=== PATIENT | male | born 1980 | race Caucasian/White ===

== ENCOUNTER 2019-10-11 11:02 | Inpatient (IN) | payer MEDICAID, SELFPAY ==
[~2019-10-11] VITALS: Ht 167.6 cm; Wt 80.0 kg
[~2019-10-11 11:02] MED LIST: METR500T PO; PERCT PO; SULF-168 PO
[2019-10-11] MEDS ORDERED: ACETAMINOPHEN 500 MG TABLET ONE (11:34)
[2019-10-11] MEDS ORDERED: ACETAMINOPHEN 500 MG TABLET PO ONE ×2 (11:45→19:15)
[2019-10-11 12:58] LABS: APPEARANCE,URINE CLEAR (CLEAR); BILIRUBIN,URINE NEGATIVE (NEGATIVE); GLUCOSE, URINE (UA) NEGATIVE (NEGATIVE); KETONES,URINE TRACE mg/dL (NEGATIVE); LEUKOCYTE ESTERASE ,URINE NEGATIVE (NEGATIVE); NITRATE,URINE NEGATIVE (NEGATIVE); OCCULT BLOOD,URINE NEGATIVE (NEGATIVE); PROTEIN,URINE SEE CONFIRM (NEGATIVE)
[2019-10-11 13:09] LABS: SULFOSALICYLIC ACID,URINE 3+ (Negative)
[2019-10-11 13:10] LABS: BACTERIA,URINE None Seen /HPF (None Seen); RBC,URINE 0-2 /HPF (0-2); WBC,URINE 0-2 /HPF (0-5)
[2019-10-11] MEDS ORDERED: SODIUM CHLORIDE 0.9% 1,000 ML ONE (13:19)
[2019-10-11] MEDS ORDERED: SODIUM CHLORIDE 0.9% 1,000 ML IV ONE (13:30)
[2019-10-11 13:51] LABS: BASOPHILS % (AUTO) 0.3 % (0.0-2.0); EOSINOPHILS % (AUTO) 0.2 % (1.0-6.0); HEMATOCRIT 42.9 % (41-53); HEMOGLOBIN 14.1 g/dL (13.5-17.5); LYMPHOCYTES # (AUTO) 1.3 K/uL (1.0-4.8); MEAN CORPUSCULAR HEMOGLOBIN 32.4 pg (26.0-34.0); MEAN CORPUSCULAR VOLUME 98 fL (80-100); MONOCYTES # (AUTO) 0.5 K/uL (0.1-1.0); MONOCYTES % (AUTO) 6.4 % (2.0-9.0); NEUTROPHILS # (AUTO) 5.4 K/uL (1.8-7.7); NEUTROPHILS % (AUTO) 75.1 % (40.0-70.0); PLATELET COUNT (AUTO) 122 K/uL (150-450); RED BLOOD CELL COUNT(AUTO) 4.36 MIL/uL (4.50-5.90); RED CELL DISTRIBUTION WIDTH 12.7 % (11.5-14.5)
[2019-10-11 13:59] LABS: ANION GAP 11 mmol/L (8-16); CALCIUM, TOTAL 8.3 mg/dL (8.8-10.5); CARBON DIOXIDE 24 mmol/L (22-29); CHLORIDE 105 mmol/L (98-107); CREATININE 0.84 mg/dL (0.60-1.30); GLOMERULAR FILTR. RATE CALC > 60 mL/min (>60); GLUCOSE,RANDOM 96 mg/dL (70-110); POTASSIUM 3.5 mmol/L (3.5-5.1); SODIUM SERUM 140 mmol/L (136-145); UREA NITROGEN, BLOOD 10 mg/dL (7-18)
[2019-10-11 14:04] LABS: ALANINE AMINOTRANSFERASE 97 U/L (12-78); ALBUMIN 3.1 g/dL (3.4-5.0); ALKALINE PHOSPHATASE 82 U/L (46-116); ASPARTATE AMINOTRANSFERASE 99 U/L (15-37); BILIRUBIN,TOTAL 0.5 mg/dL (0.1-1.0); C-REACTIVE PROTEIN QUANT 7.25 mg/dL (0.00-0.30); TOTAL PROTEIN, SERUM 7.1 g/dL (6.4-8.2)
[2019-10-11 14:22] LABS: B-TYPE NATRIURETIC PEPTIDE 26 pg/mL (0-100)
[2019-10-11] MEDS ORDERED: CefTRIAXone 1 GM/DEXTROSE 50 ML IV ONE (17:15)
[2019-10-11] MEDS ORDERED: AZITHROMYCIN 500 MG/NS 250 ML IV ONE (17:15)
[2019-10-11 17:18] LABS: FERRITIN 2592 ng/mL (26-388)
[2019-10-11] MEDS ORDERED: GuaiFENesin/CODEINE [SUGAR FREE] 200-20MG/10 ML SYRUP UDCUP PO ONE (18:00)
[2019-10-11] MEDS ORDERED: IBUPROFEN 600 MG TABLET PO ONE (19:15)
[2019-10-11] MEDS ORDERED: MAGNESIUM HYDROXIDE SUSPENSION 30 ML UDCUP PO PRN (20:45)
[2019-10-11] MEDS ORDERED: ZOLPIDEM TARTRATE 5 MG TABLET PO PRN (20:45)
[2019-10-11] MEDS ORDERED: BISACODYL 10 MG RECTAL RECTAL SUPPOSITORY PR PRN (20:45)
[2019-10-11] MEDS ORDERED: MORPHINE SULFATE 2 MG/ML SYRINGE IVP PRN (20:45)
[2019-10-11] MEDS: DOCUSATE SODIUM 100 MG CAPSULE PO SCH (21:00)
[2019-10-11 21:06] VITALS: BP 136/64
[2019-10-12] MEDS ORDERED: SODIUM CHLORIDE 0.9% 0 ML IV ONE (00:16)
[2019-10-12 05:38] VITALS: BP 134/66
[2019-10-12 07:48] LABS: BASOPHILS % (AUTO) 0.1 % (0.0-2.0); EOSINOPHILS % (AUTO) 0.1 % (1.0-6.0); HEMATOCRIT 39.7 % (41-53); HEMOGLOBIN 13.7 g/dL (13.5-17.5); LYMPHOCYTES # (AUTO) 0.9 K/uL (1.0-4.8); LYMPHOCYTES % (AUTO) 11.8 % (22.0-44.0); MEAN CORPUSCULAR HEMOGLOBIN 33.9 pg (26.0-34.0); MEAN CORPUSCULAR HGB CONC 34.5 G/dL (31.0-37.0); MEAN CORPUSCULAR VOLUME 98 fL (80-100); MONOCYTES # (AUTO) 0.4 K/uL (0.1-1.0); MONOCYTES % (AUTO) 5.1 % (2.0-9.0); NEUTROPHILS # (AUTO) 6.5 K/uL (1.8-7.7); NEUTROPHILS % (AUTO) 82.9 % (40.0-70.0); PLATELET COUNT (AUTO) 130 K/uL (150-450); RED BLOOD CELL COUNT(AUTO) 4.04 MIL/uL (4.50-5.90); RED CELL DISTRIBUTION WIDTH 13.2 % (11.5-14.5)
[2019-10-12 08:10] LABS: ALANINE AMINOTRANSFERASE 82 U/L (12-78); ALBUMIN 2.7 g/dL (3.4-5.0); ALKALINE PHOSPHATASE 82 U/L (46-116); ANION GAP 10 mmol/L (8-16); ASPARTATE AMINOTRANSFERASE 94 U/L (15-37); BILIRUBIN,TOTAL 0.6 mg/dL (0.1-1.0); CALCIUM, TOTAL 7.7 mg/dL (8.8-10.5); CARBON DIOXIDE 24 mmol/L (22-29); CHLORIDE 106 mmol/L (98-107); CREATININE 0.71 mg/dL (0.60-1.30); GLOMERULAR FILTR. RATE CALC > 60 mL/min (>60); GLUCOSE,RANDOM 99 mg/dL (70-110); POTASSIUM 3.6 mmol/L (3.5-5.1); SODIUM SERUM 140 mmol/L (136-145); TOTAL PROTEIN, SERUM 6.7 g/dL (6.4-8.2); UREA NITROGEN, BLOOD 7 mg/dL (7-18)
[2019-10-12] MEDS: HEPARIN SODIUM,PORCINE 5,000 UNITS/ML VIAL SQ SCH ×4 (08:35→23:49)
[2019-10-12] MEDS: DOCUSATE SODIUM 100 MG CAPSULE PO SCH ×2 (08:35→20:50)
[2019-10-12 08:52] VITALS: BP 114/70
[2019-10-12] MEDS: ACETAMINOPHEN 325 MG TABLET PO PRN ×2 (08:56→16:01)
[2019-10-12 12:23] VITALS: BP 112/69
[2019-10-12] MEDS: GuaiFENesin/D-METHORPHAN [SUGAR-FREE] 200-20MG/10 ML SYRUP UDCUP PO PRN ×2 (16:19→22:25)
[2019-10-12 16:34] VITALS: BP 137/73
[2019-10-12] MEDS: AZITHROMYCIN 500 MG/NS 250 ML IV SCH (18:11)
[2019-10-12 19:55] VITALS: BP 110/72
[2019-10-12] MEDS: CefTRIAXone 1 GM/DEXTROSE 50 ML IV SCH (20:50)
[2019-10-12] MEDS: HYDROCODONE/ACETAMINOPHEN 5-325 MG TABLET PO PRN (22:30)
[2019-10-13 00:20] VITALS: BP 104/66
[2019-10-13] MEDS: GuaiFENesin/D-METHORPHAN [SUGAR-FREE] 200-20MG/10 ML SYRUP UDCUP PO PRN ×3 (04:43→22:04)
[2019-10-13 05:10] VITALS: BP 114/60
[2019-10-13 07:57] VITALS: BP 111/71
[2019-10-13] MEDS: DOCUSATE SODIUM 100 MG CAPSULE PO SCH ×2 (08:44→20:55)
[2019-10-13] MEDS: HEPARIN SODIUM,PORCINE 5,000 UNITS/ML VIAL SQ SCH ×2 (08:49→16:00)
[2019-10-13 12:19] VITALS: BP 113/70
[2019-10-13] MEDS: ACETAMINOPHEN 325 MG TABLET PO PRN (13:06)
[2019-10-13 16:55] VITALS: BP 130/78
[2019-10-13] MEDS: AZITHROMYCIN 500 MG/NS 250 ML IV SCH (17:33)
[2019-10-13] MEDS: HYDROCODONE/ACETAMINOPHEN 5-325 MG TABLET PO PRN (17:46)
[2019-10-13 20:41] VITALS: BP 112/74
[2019-10-13] MEDS: FAMOTIDINE 20 MG TABLET PO SCH (20:55)
[2019-10-13] MEDS: CefTRIAXone 1 GM/DEXTROSE 50 ML IV SCH (20:55)
[2019-10-14] MEDS: HEPARIN SODIUM,PORCINE 5,000 UNITS/ML VIAL SQ SCH ×4 (00:09→23:50)
[2019-10-14] MEDS: ZINC SULFATE 220 MG CAPSULE PO SCH ×3 (00:09→22:49)
[2019-10-14] MEDS: HYDROXYCHLOROQUINE SULFATE 200 MG TABLET PO SCH ×3 (00:09→20:22)
[2019-10-14] MEDS: HYDROCODONE/ACETAMINOPHEN 5-325 MG TABLET PO PRN ×2 (00:17→17:23)
[2019-10-14 01:29] LABS: INFLUENZA TYPE A NEGATIVE FOR TYPE A (NEGATIVE); INFLUENZA TYPE B NEGATIVE FOR TYPE B (NEGATIVE)
[2019-10-14 04:41] VITALS: BP 104/62
[2019-10-14 07:24] LABS: BASOPHILS % (AUTO) 0.3 % (0.0-2.0); HEMATOCRIT 41.5 % (41-53); HEMOGLOBIN 13.6 g/dL (13.5-17.5); LYMPHOCYTES # (AUTO) 1.3 K/uL (1.0-4.8); LYMPHOCYTES % (AUTO) 18.7 % (22.0-44.0); MEAN CORPUSCULAR HEMOGLOBIN 32.7 pg (26.0-34.0); MEAN CORPUSCULAR HGB CONC 32.8 G/dL (31.0-37.0); MEAN CORPUSCULAR VOLUME 100 fL (80-100); MONOCYTES # (AUTO) 0.7 K/uL (0.1-1.0); MONOCYTES % (AUTO) 10.2 % (2.0-9.0); NEUTROPHILS % (AUTO) 69.8 % (40.0-70.0); PLATELET COUNT (AUTO) 226 K/uL (150-450); RED BLOOD CELL COUNT(AUTO) 4.17 MIL/uL (4.50-5.90); RED CELL DISTRIBUTION WIDTH 13.1 % (11.5-14.5)
[2019-10-14 08:06] VITALS: BP 109/65
[2019-10-14 08:24] LABS: ALANINE AMINOTRANSFERASE 71 U/L (12-78); ALBUMIN 2.5 g/dL (3.4-5.0); ALKALINE PHOSPHATASE 88 U/L (46-116); ANION GAP 10 mmol/L (8-16); ASPARTATE AMINOTRANSFERASE 67 U/L (15-37); BILIRUBIN,TOTAL 0.6 mg/dL (0.1-1.0); C-REACTIVE PROTEIN QUANT 7.28 mg/dL (0.00-0.30); CALCIUM, TOTAL 8.3 mg/dL (8.8-10.5); CARBON DIOXIDE 23 mmol/L (22-29); CHLORIDE 106 mmol/L (98-107); CREATININE 0.67 mg/dL (0.60-1.30); FERRITIN 2037 ng/mL (26-388); GLOMERULAR FILTR. RATE CALC > 60 mL/min (>60); GLUCOSE,RANDOM 95 mg/dL (70-110); LACTATE DEHYDROGENASE 281 U/L (85-227); POTASSIUM 3.8 mmol/L (3.5-5.1); SODIUM SERUM 139 mmol/L (136-145); TOTAL PROTEIN, SERUM 7.1 g/dL (6.4-8.2); UREA NITROGEN, BLOOD 12 mg/dL (7-18)
[2019-10-14] MEDS: DOCUSATE SODIUM 100 MG CAPSULE PO SCH ×2 (09:00→20:22)
[2019-10-14] MEDS: FAMOTIDINE 20 MG TABLET PO SCH ×2 (09:53→20:22)
[2019-10-14] MEDS: GuaiFENesin/D-METHORPHAN [SUGAR-FREE] 200-20MG/10 ML SYRUP UDCUP PO PRN ×3 (09:55→23:50)
[2019-10-14] MEDS: ACETAMINOPHEN 325 MG TABLET PO PRN (13:52)
[2019-10-14 16:32] VITALS: BP 110/56
[2019-10-14] MEDS: AZITHROMYCIN 500 MG/NS 250 ML IV SCH (17:16)
[2019-10-14 20:00] VITALS: BP 105/62
[2019-10-14] MEDS: CefTRIAXone 1 GM/DEXTROSE 50 ML IV SCH (20:22)
[2019-10-14 20:28] VITALS: BP 116/68
[2019-10-15 04:15] VITALS: BP 112/72
[2019-10-15 07:00] LABS: BASOPHILS % (AUTO) 0.3 % (0.0-2.0); EOSINOPHILS % (AUTO) 1.9 % (1.0-6.0); HEMATOCRIT 42.4 % (41-53); HEMOGLOBIN 14.4 g/dL (13.5-17.5); LYMPHOCYTES # (AUTO) 1.4 K/uL (1.0-4.8); LYMPHOCYTES % (AUTO) 17.3 % (22.0-44.0); MEAN CORPUSCULAR HEMOGLOBIN 33.4 pg (26.0-34.0); MEAN CORPUSCULAR VOLUME 98 fL (80-100); MONOCYTES % (AUTO) 11.9 % (2.0-9.0); NEUTROPHILS # (AUTO) 5.7 K/uL (1.8-7.7); NEUTROPHILS % (AUTO) 68.6 % (40.0-70.0); PLATELET COUNT (AUTO) 266 K/uL (150-450); RED BLOOD CELL COUNT(AUTO) 4.31 MIL/uL (4.50-5.90); RED CELL DISTRIBUTION WIDTH 12.8 % (11.5-14.5)
[2019-10-15 07:18] VITALS: BP 119/71
[2019-10-15 08:06] LABS: ALANINE AMINOTRANSFERASE 84 U/L (12-78); ALBUMIN 2.5 g/dL (3.4-5.0); ALKALINE PHOSPHATASE 115 U/L (46-116); ANION GAP 10 mmol/L (8-16); ASPARTATE AMINOTRANSFERASE 90 U/L (15-37); BILIRUBIN,TOTAL 0.6 mg/dL (0.1-1.0); C-REACTIVE PROTEIN QUANT 3.73 mg/dL (0.00-0.30); CALCIUM, TOTAL 8.4 mg/dL (8.8-10.5); CARBON DIOXIDE 24 mmol/L (22-29); CHLORIDE 106 mmol/L (98-107); CREATININE 0.77 mg/dL (0.60-1.30); FERRITIN 2382 ng/mL (26-388); GLOMERULAR FILTR. RATE CALC > 60 mL/min (>60); GLUCOSE,RANDOM 88 mg/dL (70-110); LACTATE DEHYDROGENASE 311 U/L (85-227); SODIUM SERUM 140 mmol/L (136-145); TOTAL PROTEIN, SERUM 7.2 g/dL (6.4-8.2); UREA NITROGEN, BLOOD 11 mg/dL (7-18)
[2019-10-15] MEDS: DOCUSATE SODIUM 100 MG CAPSULE PO SCH ×2 (08:37→21:12)
[2019-10-15] MEDS: HYDROXYCHLOROQUINE SULFATE 200 MG TABLET PO SCH ×2 (08:37→21:12)
[2019-10-15] MEDS: HEPARIN SODIUM,PORCINE 5,000 UNITS/ML VIAL SQ SCH ×2 (08:37→17:24)
[2019-10-15] MEDS: ZINC SULFATE 220 MG CAPSULE PO SCH ×2 (08:37→21:12)
[2019-10-15] MEDS: FAMOTIDINE 20 MG TABLET PO SCH ×2 (08:38→21:12)
[2019-10-15] MEDS: HYDROCODONE/ACETAMINOPHEN 5-325 MG TABLET PO PRN ×3 (09:04→22:01)
[2019-10-15] MEDS: GuaiFENesin/D-METHORPHAN [SUGAR-FREE] 200-20MG/10 ML SYRUP UDCUP PO PRN ×3 (09:04→22:06)
[2019-10-15 13:22] VITALS: BP 108/59
[2019-10-15 15:46] VITALS: BP 118/67
[2019-10-15] MEDS ORDERED: SODIUM CHLORIDE 0.9% 250 ML IV ONE (17:14)
[2019-10-15] MEDS: AZITHROMYCIN 500 MG/NS 250 ML IV SCH (17:24)
[2019-10-15 20:15] VITALS: BP 106/65
[2019-10-15] MEDS: CefTRIAXone 1 GM/DEXTROSE 50 ML IV SCH (21:13)
[2019-10-16] MEDS: HEPARIN SODIUM,PORCINE 5,000 UNITS/ML VIAL SQ SCH ×3 (00:06→15:15)
[2019-10-16 00:44] VITALS: BP 100/64
[2019-10-16 04:22] VITALS: BP 103/66
[2019-10-16 07:14] LABS: BASOPHILS % (AUTO) 0.4 % (0.0-2.0); EOSINOPHILS % (AUTO) 3.6 % (1.0-6.0); HEMATOCRIT 41.9 % (41-53); HEMOGLOBIN 14.3 g/dL (13.5-17.5); LYMPHOCYTES # (AUTO) 1.6 K/uL (1.0-4.8); MEAN CORPUSCULAR HEMOGLOBIN 33.6 pg (26.0-34.0); MEAN CORPUSCULAR HGB CONC 34.1 G/dL (31.0-37.0); MEAN CORPUSCULAR VOLUME 98 fL (80-100); MONOCYTES # (AUTO) 0.9 K/uL (0.1-1.0); MONOCYTES % (AUTO) 11.8 % (2.0-9.0); NEUTROPHILS # (AUTO) 4.9 K/uL (1.8-7.7); NEUTROPHILS % (AUTO) 63.2 % (40.0-70.0); PLATELET COUNT (AUTO) 289 K/uL (150-450); RED BLOOD CELL COUNT(AUTO) 4.26 MIL/uL (4.50-5.90); RED CELL DISTRIBUTION WIDTH 12.7 % (11.5-14.5)
[2019-10-16 07:31] VITALS: BP 111/67
[2019-10-16 08:18] LABS: ALANINE AMINOTRANSFERASE 92 U/L (12-78); ALBUMIN 2.6 g/dL (3.4-5.0); ALKALINE PHOSPHATASE 121 U/L (46-116); ANION GAP 11 mmol/L (8-16); ASPARTATE AMINOTRANSFERASE 89 U/L (15-37); BILIRUBIN,TOTAL 0.6 mg/dL (0.1-1.0); C-REACTIVE PROTEIN QUANT 3.04 mg/dL (0.00-0.30); CALCIUM, TOTAL 8.8 mg/dL (8.8-10.5); CARBON DIOXIDE 23 mmol/L (22-29); CHLORIDE 106 mmol/L (98-107); CREATININE 0.82 mg/dL (0.60-1.30); FERRITIN 2406 ng/mL (26-388); GLOMERULAR FILTR. RATE CALC > 60 mL/min (>60); GLUCOSE,RANDOM 93 mg/dL (70-110); LACTATE DEHYDROGENASE 263 U/L (85-227); POTASSIUM 3.9 mmol/L (3.5-5.1); SODIUM SERUM 140 mmol/L (136-145); TOTAL PROTEIN, SERUM 7.6 g/dL (6.4-8.2); UREA NITROGEN, BLOOD 11 mg/dL (7-18)
[2019-10-16] MEDS: ZINC SULFATE 220 MG CAPSULE PO SCH ×2 (08:18→20:37)
[2019-10-16] MEDS: DOCUSATE SODIUM 100 MG CAPSULE PO SCH ×2 (08:18→20:36)
[2019-10-16] MEDS: FAMOTIDINE 20 MG TABLET PO SCH ×2 (08:18→20:36)
[2019-10-16] MEDS: GuaiFENesin/D-METHORPHAN [SUGAR-FREE] 200-20MG/10 ML SYRUP UDCUP PO PRN ×2 (08:25→20:37)
[2019-10-16] MEDS: ACETAMINOPHEN 325 MG TABLET PO PRN ×2 (08:27→15:15)
[2019-10-16 11:44] VITALS: BP 100/57
[2019-10-16 17:13] VITALS: BP 105/65
[2019-10-16] MEDS: AZITHROMYCIN 500 MG/NS 250 ML IV SCH (17:37)
[2019-10-16 21:04] VITALS: BP 103/64
[2019-10-17] VITALS (11 sets, daily range): BP systolic 96–147; BP diastolic 56–70
[2019-10-17] MEDS: HEPARIN SODIUM,PORCINE 5,000 UNITS/ML VIAL SQ SCH ×4 (00:22→23:27)
[2019-10-17 05:58] LABS: BASOPHILS % (AUTO) 0.6 % (0.0-2.0); EOSINOPHILS % (AUTO) 4.2 % (1.0-6.0); HEMATOCRIT 42.8 % (41-53); HEMOGLOBIN 14.6 g/dL (13.5-17.5); LYMPHOCYTES # (AUTO) 1.7 K/uL (1.0-4.8); LYMPHOCYTES % (AUTO) 19.9 % (22.0-44.0); MEAN CORPUSCULAR HEMOGLOBIN 33.2 pg (26.0-34.0); MEAN CORPUSCULAR VOLUME 98 fL (80-100); MONOCYTES # (AUTO) 0.9 K/uL (0.1-1.0); MONOCYTES % (AUTO) 10.8 % (2.0-9.0); NEUTROPHILS # (AUTO) 5.4 K/uL (1.8-7.7); NEUTROPHILS % (AUTO) 64.5 % (40.0-70.0); PLATELET COUNT (AUTO) 326 K/uL (150-450); RED BLOOD CELL COUNT(AUTO) 4.39 MIL/uL (4.50-5.90); RED CELL DISTRIBUTION WIDTH 12.8 % (11.5-14.5)
[2019-10-17 06:48] LABS: ALANINE AMINOTRANSFERASE 102 U/L (12-78); ALBUMIN 2.7 g/dL (3.4-5.0); ALKALINE PHOSPHATASE 127 U/L (46-116); ANION GAP 13 mmol/L (8-16); ASPARTATE AMINOTRANSFERASE 93 U/L (15-37); BILIRUBIN,TOTAL 0.6 mg/dL (0.1-1.0); C-REACTIVE PROTEIN QUANT 2.31 mg/dL (0.00-0.30); CALCIUM, TOTAL 8.8 mg/dL (8.8-10.5); CARBON DIOXIDE 21 mmol/L (22-29); CHLORIDE 106 mmol/L (98-107); CREATININE 0.89 mg/dL (0.60-1.30); FERRITIN 2512 ng/mL (26-388); GLOMERULAR FILTR. RATE CALC > 60 mL/min (>60); GLUCOSE,RANDOM 99 mg/dL (70-110); LACTATE DEHYDROGENASE 262 U/L (85-227); SODIUM SERUM 140 mmol/L (136-145); TOTAL PROTEIN, SERUM 7.7 g/dL (6.4-8.2); UREA NITROGEN, BLOOD 13 mg/dL (7-18)
[2019-10-17] MEDS: FAMOTIDINE 20 MG TABLET PO SCH ×2 (08:15→20:29)
[2019-10-17] MEDS: HYDROXYCHLOROQUINE SULFATE 200 MG TABLET PO SCH (08:15)
[2019-10-17] MEDS: ZINC SULFATE 220 MG CAPSULE PO SCH (08:15)
[2019-10-17] MEDS: DOCUSATE SODIUM 100 MG CAPSULE PO SCH ×2 (08:15→20:29)
[2019-10-17] MEDS ORDERED: SODIUM CHLORIDE 0.9% 250 ML IV ONE (13:57)
[2019-10-17] MEDS: AZITHROMYCIN 500 MG/NS 250 ML IV SCH (17:21)
[2019-10-17] MEDS: ACETAMINOPHEN 325 MG TABLET PO PRN (17:21)
[2019-10-17] MEDS: HYDROCODONE/ACETAMINOPHEN 5-325 MG TABLET PO PRN (20:29)
[2019-10-18 04:30] VITALS: BP 110/59
[2019-10-18 07:03] VITALS: BP 98/62
[2019-10-18 07:42] LABS: BASOPHILS % (AUTO) 0.5 % (0.0-2.0); EOSINOPHILS % (AUTO) 6.6 % (1.0-6.0); HEMATOCRIT 41.9 % (41-53); LYMPHOCYTES # (AUTO) 2.3 K/uL (1.0-4.8); MEAN CORPUSCULAR HEMOGLOBIN 32.9 pg (26.0-34.0); MEAN CORPUSCULAR HGB CONC 33.4 G/dL (31.0-37.0); MEAN CORPUSCULAR VOLUME 98 fL (80-100); MONOCYTES # (AUTO) 0.8 K/uL (0.1-1.0); MONOCYTES % (AUTO) 10.5 % (2.0-9.0); NEUTROPHILS % (AUTO) 52.4 % (40.0-70.0); PLATELET COUNT (AUTO) 344 K/uL (150-450); RED BLOOD CELL COUNT(AUTO) 4.25 MIL/uL (4.50-5.90); RED CELL DISTRIBUTION WIDTH 12.6 % (11.5-14.5)
[2019-10-18] MEDS: FAMOTIDINE 20 MG TABLET PO SCH ×2 (08:18→20:33)
[2019-10-18] MEDS: HEPARIN SODIUM,PORCINE 5,000 UNITS/ML VIAL SQ SCH ×3 (08:18→23:09)
[2019-10-18] MEDS: ACETAMINOPHEN 325 MG TABLET PO PRN (08:19)
[2019-10-18] MEDS: DOCUSATE SODIUM 100 MG CAPSULE PO SCH ×2 (08:21→20:33)
[2019-10-18 08:50] LABS: ALANINE AMINOTRANSFERASE 127 U/L (12-78); ALBUMIN 2.7 g/dL (3.4-5.0); ALKALINE PHOSPHATASE 119 U/L (46-116); ANION GAP 10 mmol/L (8-16); ASPARTATE AMINOTRANSFERASE 148 U/L (15-37); BILIRUBIN,TOTAL 0.6 mg/dL (0.1-1.0); CALCIUM, TOTAL 8.7 mg/dL (8.8-10.5); CARBON DIOXIDE 25 mmol/L (22-29); CHLORIDE 105 mmol/L (98-107); FERRITIN 2848 ng/mL (26-388); GLOMERULAR FILTR. RATE CALC > 60 mL/min (>60); GLUCOSE,RANDOM 83 mg/dL (70-110); LACTATE DEHYDROGENASE 237 U/L (85-227); POTASSIUM 4.1 mmol/L (3.5-5.1); SODIUM SERUM 140 mmol/L (136-145); TOTAL PROTEIN, SERUM 7.6 g/dL (6.4-8.2); UREA NITROGEN, BLOOD 14 mg/dL (7-18)
[2019-10-18 11:01] VITALS: BP 108/66
[2019-10-18 15:13] VITALS: BP 100/59
[2019-10-18 19:36] VITALS: BP 97/61
[2019-10-19] MEDS: HYDROCODONE/ACETAMINOPHEN 5-325 MG TABLET PO PRN (02:52)
[2019-10-19 05:35] VITALS: BP 90/56
[2019-10-19 07:11] VITALS: BP 94/61
[2019-10-19] MEDS: FAMOTIDINE 20 MG TABLET PO SCH ×2 (07:49→19:47)
[2019-10-19] MEDS: HEPARIN SODIUM,PORCINE 5,000 UNITS/ML VIAL SQ SCH ×2 (07:51→15:25)
[2019-10-19] MEDS: DOCUSATE SODIUM 100 MG CAPSULE PO SCH ×2 (07:53→19:47)
[2019-10-19 08:00] LABS: BASOPHILS % (AUTO) 0.6 % (0.0-2.0); EOSINOPHILS % (AUTO) 5.1 % (1.0-6.0); HEMATOCRIT 41.7 % (41-53); HEMOGLOBIN 13.9 g/dL (13.5-17.5); LYMPHOCYTES # (AUTO) 2.1 K/uL (1.0-4.8); LYMPHOCYTES % (AUTO) 29.9 % (22.0-44.0); MEAN CORPUSCULAR HEMOGLOBIN 32.9 pg (26.0-34.0); MEAN CORPUSCULAR HGB CONC 33.4 G/dL (31.0-37.0); MEAN CORPUSCULAR VOLUME 98 fL (80-100); MONOCYTES # (AUTO) 0.8 K/uL (0.1-1.0); MONOCYTES % (AUTO) 10.9 % (2.0-9.0); NEUTROPHILS # (AUTO) 3.8 K/uL (1.8-7.7); NEUTROPHILS % (AUTO) 53.5 % (40.0-70.0); PLATELET COUNT (AUTO) 366 K/uL (150-450); RED BLOOD CELL COUNT(AUTO) 4.24 MIL/uL (4.50-5.90); RED CELL DISTRIBUTION WIDTH 13.1 % (11.5-14.5)
[2019-10-19 08:45] LABS: ALANINE AMINOTRANSFERASE 148 U/L (12-78); ALBUMIN 2.9 g/dL (3.4-5.0); ALKALINE PHOSPHATASE 117 U/L (46-116); ANION GAP 10 mmol/L (8-16); ASPARTATE AMINOTRANSFERASE 143 U/L (15-37); BILIRUBIN,TOTAL 0.5 mg/dL (0.1-1.0); CALCIUM, TOTAL 8.7 mg/dL (8.8-10.5); CARBON DIOXIDE 24 mmol/L (22-29); CHLORIDE 105 mmol/L (98-107); CREATININE 0.95 mg/dL (0.60-1.30); GLOMERULAR FILTR. RATE CALC > 60 mL/min (>60); GLUCOSE,RANDOM 82 mg/dL (70-110); POTASSIUM 4.3 mmol/L (3.5-5.1); SODIUM SERUM 139 mmol/L (136-145); TOTAL PROTEIN, SERUM 7.5 g/dL (6.4-8.2); UREA NITROGEN, BLOOD 16 mg/dL (7-18)
[2019-10-19 11:56] VITALS: BP 99/59
[2019-10-19 15:47] VITALS: BP 102/63
[2019-10-19 19:13] VITALS: BP 101/62
[2019-10-20] MEDS: HEPARIN SODIUM,PORCINE 5,000 UNITS/ML VIAL SQ SCH ×4 (01:22→23:10)
[2019-10-20 05:06] VITALS: BP 98/57
[2019-10-20 07:07] VITALS: BP 101/65
[2019-10-20] MEDS: FAMOTIDINE 20 MG TABLET PO SCH ×2 (07:59→20:42)
[2019-10-20] MEDS: DOCUSATE SODIUM 100 MG CAPSULE PO SCH ×2 (07:59→20:42)
[2019-10-20 08:03] LABS: BASOPHILS % (AUTO) 0.6 % (0.0-2.0); EOSINOPHILS % (AUTO) 4.2 % (1.0-6.0); HEMATOCRIT 42.8 % (41-53); HEMOGLOBIN 14.5 g/dL (13.5-17.5); LYMPHOCYTES # (AUTO) 1.9 K/uL (1.0-4.8); LYMPHOCYTES % (AUTO) 31.5 % (22.0-44.0); MEAN CORPUSCULAR HEMOGLOBIN 33.3 pg (26.0-34.0); MEAN CORPUSCULAR VOLUME 98 fL (80-100); MONOCYTES # (AUTO) 0.6 K/uL (0.1-1.0); MONOCYTES % (AUTO) 10.7 % (2.0-9.0); NEUTROPHILS # (AUTO) 3.2 K/uL (1.8-7.7); PLATELET COUNT (AUTO) 362 K/uL (150-450); RED BLOOD CELL COUNT(AUTO) 4.37 MIL/uL (4.50-5.90); RED CELL DISTRIBUTION WIDTH 12.7 % (11.5-14.5)
[2019-10-20 09:11] LABS: ALANINE AMINOTRANSFERASE 166 U/L (12-78); ALBUMIN 2.9 g/dL (3.4-5.0); ALKALINE PHOSPHATASE 113 U/L (46-116); ANION GAP 10 mmol/L (8-16); ASPARTATE AMINOTRANSFERASE 135 U/L (15-37); BILIRUBIN,TOTAL 0.7 mg/dL (0.1-1.0); C-REACTIVE PROTEIN QUANT 0.33 mg/dL (0.00-0.30); CALCIUM, TOTAL 8.9 mg/dL (8.8-10.5); CARBON DIOXIDE 24 mmol/L (22-29); CHLORIDE 105 mmol/L (98-107); FERRITIN 3517 ng/mL (26-388); GLOMERULAR FILTR. RATE CALC > 60 mL/min (>60); GLUCOSE,RANDOM 88 mg/dL (70-110); SODIUM SERUM 139 mmol/L (136-145); TOTAL PROTEIN, SERUM 7.6 g/dL (6.4-8.2); UREA NITROGEN, BLOOD 14 mg/dL (7-18)
[2019-10-20 11:04] VITALS: BP 102/60
[2019-10-20] MEDS ORDERED: SODIUM CHLORIDE 0.9% 250 ML IV ONE (14:20)
[2019-10-20 15:10] VITALS: BP 105/66
[2019-10-20 19:45] VITALS: BP 97/56
[2019-10-21 00:13] VITALS: BP 100/69
[2019-10-21 03:50] VITALS: BP 98/51
[2019-10-21 06:22] LABS: BASOPHILS % (AUTO) 0.6 % (0.0-2.0); EOSINOPHILS % (AUTO) 3.3 % (1.0-6.0); HEMATOCRIT 39.4 % (41-53); HEMOGLOBIN 13.7 g/dL (13.5-17.5); LYMPHOCYTES % (AUTO) 29.2 % (22.0-44.0); MEAN CORPUSCULAR HGB CONC 34.7 G/dL (31.0-37.0); MEAN CORPUSCULAR VOLUME 98 fL (80-100); MONOCYTES # (AUTO) 0.7 K/uL (0.1-1.0); MONOCYTES % (AUTO) 9.8 % (2.0-9.0); NEUTROPHILS % (AUTO) 57.1 % (40.0-70.0); PLATELET COUNT (AUTO) 348 K/uL (150-450); RED BLOOD CELL COUNT(AUTO) 4.02 MIL/uL (4.50-5.90); RED CELL DISTRIBUTION WIDTH 12.7 % (11.5-14.5)
[2019-10-21] MEDS: FAMOTIDINE 20 MG TABLET PO SCH ×2 (08:13→21:00)
[2019-10-21] MEDS: DOCUSATE SODIUM 100 MG CAPSULE PO SCH ×2 (08:14→21:00)
[2019-10-21] MEDS: HEPARIN SODIUM,PORCINE 5,000 UNITS/ML VIAL SQ SCH ×3 (08:14→23:29)
[2019-10-21 09:00] VITALS: BP 103/69
[2019-10-21 09:45] LABS: C-REACTIVE PROTEIN QUANT 0.23 mg/dL (0.00-0.30)
[2019-10-21 15:42] VITALS: BP 104/65
[2019-10-21 20:47] VITALS: BP 109/63
[2019-10-21] MEDS: GuaiFENesin/D-METHORPHAN [SUGAR-FREE] 200-20MG/10 ML SYRUP UDCUP PO PRN (23:29)
[2019-10-22 04:52] VITALS: BP 108/83
[2019-10-22 07:50] VITALS: BP 112/69
[2019-10-22 08:23] LABS: ALANINE AMINOTRANSFERASE 199 U/L (12-78); ALBUMIN 3.3 g/dL (3.4-5.0); ALKALINE PHOSPHATASE 108 U/L (46-116); ANION GAP 8 mmol/L (8-16); ASPARTATE AMINOTRANSFERASE 114 U/L (15-37); BILIRUBIN,TOTAL 0.6 mg/dL (0.1-1.0); CALCIUM, TOTAL 9.1 mg/dL (8.8-10.5); CARBON DIOXIDE 26 mmol/L (22-29); CHLORIDE 105 mmol/L (98-107); CREATININE 0.73 mg/dL (0.60-1.30); GLOMERULAR FILTR. RATE CALC > 60 mL/min (>60); GLUCOSE,RANDOM 88 mg/dL (70-110); LACTATE DEHYDROGENASE 223 U/L (85-227); POTASSIUM 4.3 mmol/L (3.5-5.1); SODIUM SERUM 139 mmol/L (136-145); TOTAL PROTEIN, SERUM 8.3 g/dL (6.4-8.2); UREA NITROGEN, BLOOD 12 mg/dL (7-18)
[2019-10-22 09:03] LABS: C-REACTIVE PROTEIN QUANT 0.37 mg/dL (0.00-0.30)
[2019-10-22 10:09] LABS: FERRITIN 3901 ng/mL (26-388)
[2019-10-22] MEDS: FAMOTIDINE 20 MG TABLET PO SCH ×2 (10:43→20:00)
[2019-10-22] MEDS: DOCUSATE SODIUM 100 MG CAPSULE PO SCH ×2 (10:43→20:00)
[2019-10-22] MEDS: HEPARIN SODIUM,PORCINE 5,000 UNITS/ML VIAL SQ SCH ×3 (10:43→23:12)
[2019-10-22 15:10] VITALS: BP 113/63
[2019-10-22] MEDS: GuaiFENesin/D-METHORPHAN [SUGAR-FREE] 200-20MG/10 ML SYRUP UDCUP PO PRN (20:00)
[2019-10-22 20:11] VITALS: BP 101/63
[2019-10-22] MEDS: ACETAMINOPHEN 325 MG TABLET PO PRN (23:13)
[2019-10-22 23:21] VITALS: BP 90/58
[2019-10-23 04:00] VITALS: BP 97/57
[2019-10-23 06:40] LABS: BASOPHILS % (AUTO) 0.8 % (0.0-2.0); EOSINOPHILS % (AUTO) 2.7 % (1.0-6.0); HEMATOCRIT 39.7 % (41-53); HEMOGLOBIN 13.7 g/dL (13.5-17.5); LYMPHOCYTES # (AUTO) 1.9 K/uL (1.0-4.8); LYMPHOCYTES % (AUTO) 26.1 % (22.0-44.0); MEAN CORPUSCULAR HEMOGLOBIN 33.6 pg (26.0-34.0); MEAN CORPUSCULAR HGB CONC 34.4 G/dL (31.0-37.0); MEAN CORPUSCULAR VOLUME 98 fL (80-100); MONOCYTES # (AUTO) 0.8 K/uL (0.1-1.0); MONOCYTES % (AUTO) 10.5 % (2.0-9.0); NEUTROPHILS # (AUTO) 4.3 K/uL (1.8-7.7); NEUTROPHILS % (AUTO) 59.9 % (40.0-70.0); PLATELET COUNT (AUTO) 312 K/uL (150-450); RED BLOOD CELL COUNT(AUTO) 4.07 MIL/uL (4.50-5.90); RED CELL DISTRIBUTION WIDTH 12.9 % (11.5-14.5)
[2019-10-23 07:37] LABS: ALANINE AMINOTRANSFERASE 159 U/L (12-78); ALBUMIN 3.1 g/dL (3.4-5.0); ALKALINE PHOSPHATASE 101 U/L (46-116); ANION GAP 9 mmol/L (8-16); ASPARTATE AMINOTRANSFERASE 81 U/L (15-37); BILIRUBIN,TOTAL 0.6 mg/dL (0.1-1.0); C-REACTIVE PROTEIN QUANT 0.53 mg/dL (0.00-0.30); CALCIUM, TOTAL 8.7 mg/dL (8.8-10.5); CARBON DIOXIDE 24 mmol/L (22-29); CHLORIDE 101 mmol/L (98-107); CREATININE 0.84 mg/dL (0.60-1.30); FERRITIN 2845 ng/mL (26-388); GLOMERULAR FILTR. RATE CALC > 60 mL/min (>60); GLUCOSE,RANDOM 93 mg/dL (70-110); LACTATE DEHYDROGENASE 217 U/L (85-227); SODIUM SERUM 134 mmol/L (136-145); TOTAL PROTEIN, SERUM 7.5 g/dL (6.4-8.2); UREA NITROGEN, BLOOD 12 mg/dL (7-18)
[2019-10-23 07:58] VITALS: BP 99/56
[2019-10-23] MEDS: HEPARIN SODIUM,PORCINE 5,000 UNITS/ML VIAL SQ SCH ×2 (08:14→16:54)
[2019-10-23] MEDS: FAMOTIDINE 20 MG TABLET PO SCH (08:15)
[2019-10-23] MEDS: DOCUSATE SODIUM 100 MG CAPSULE PO SCH (08:15)
[2019-10-23 15:55] VITALS: BP 105/58
[2019-10-23] MEDS ORDERED: APIXABAN 5 MG TABLET PO ONE (16:00)
[2019-10-23] MEDS ORDERED: APIX5TAB PO (16:05)
== END 2019-10-23 18:55 | disposition home or self-care (01) | DRG 137 ==
LOC: EMS 11:03 → 5N 18:33 → 6N 10-21 05:53
PROVIDERS: ADMIT Hospitalist; ATTEND Hospitalist
PROC: 30233M1 Transfusion of Nonautologous Plasma Cryoprecipitate into Peripheral Vein, Percutaneous Approach (ICD-10-PCS; principal; 2019-10-17)
DX: U07.1 COVID-19 (principal); J96.01 Acute respiratory failure with hypoxia; J12.89 Other viral pneumonia; R65.10 Systemic inflammatory response syndrome (SIRS) of non-infectious origin without acute organ dysfunction; D68.59 Other primary thrombophilia
CPT/HCPCS: 71250; 72192; 74150; 80074; 82728; 83605; 83615; 84145; 85379; 86140; 86850; 86900; 86901; 86927; 87040; 87804; 93005; J0456; J0696; J1644; J7030; J7050